=== PATIENT | female | born 1970 | race Two or more races ===

== ENCOUNTER 2016-05-06 22:10 | Emergency (ER) | payer MEDICAID, OTHER ==
[~2016-05-06] VITALS: Ht 154.9 cm; Wt 59.0 kg
[2016-05-07 07:51] VITALS: BP 116/71
== END 2016-05-07 08:55 | disposition home or self-care (01) ==
LOC: ER 22:16
DX: L03.211 Cellulitis of face (principal); L25.9 Unspecified contact dermatitis, unspecified cause